=== PATIENT | female | born 1975 | race African-American/Black ===

== ENCOUNTER 2019-09-05 07:58 | Emergency (ER) | payer OTHER, MEDICAID ==
[~2019-09-05] VITALS: Ht 160 cm; Wt 68.0 kg
[~2019-09-05 07:58] MED LIST: IBUP600T27; PHENTAB
[2019-09-05] MEDS ORDERED: SODIUM CHLORIDE 0.9% 500 ML IV ONE (08:28)
[2019-09-05] MEDS ORDERED: SODIUM CHLORIDE 0.9% 1,000 ML IV ONE (08:28)
[2019-09-05 08:52] LABS: Urine Bacteria NONE SEEN /hpf (None Seen); Urine Blood 3+ /uL (Negative); Urine Specific Gravity 1.019 (1.001-1.035); Urine WBC 14 /hpf (0 - 5)
[2019-09-05 09:21] LABS: Eosinophils # (auto) 0.1 uL; Neutrophils # (auto) 2.7 uL; Platelet Count (auto) 408 10^3/uL (140-450)
[2019-09-05 09:24] LABS: Basophils # (auto) 0 uL; Eosinophils % (auto) 2.2 % (0.0-7.0); Hematocrit 27.9 % (36.0-46.0); Hemoglobin 8.7 g/dL (12.2-16.2); Lymphocytes # (auto) 1.1 uL; Lymphocytes % (auto) 25.5 % (10.0-50.0); Mean Corpuscular Hemoglobin 22.8 pg (28.0-32.0); Mean Corpuscular Hgb Conc. 31.1 g/dL (32.0-36.0); Mean Corpuscular Volume 73.5 fL (80.0-100.0); Monocytes # (auto) 0.5 uL; Monocytes % (auto) 12.1 % (0.0-12.0); Neutrophils % (auto) 59.2 % (37.0-80.0); Red Blood Cells 3.79 10^6/uL (4.0-5.20); White Blood Cell 4.5 10^3/uL (4.4-10.8)
[2019-09-05 09:28] LABS: Albumin 3.3 g/dL (3.4-5.0); BUN/Creatinine Ratio 18.6; Calcium 8.2 mg/dL (8.5-10.1); Potassium 4.8 mmol/L (3.5-5.1)
[2019-09-05 09:31] LABS: Bilirubin, Total 0.1 mg/dL (0.2-1.0); Total Protein 7.5 g/dL (6.4-8.2)
[2019-09-05 09:55] LABS: Red Cell Distribution Width 21.7 % (11.8-14.3)
[2019-09-05] MEDS ORDERED: KETOROLAC TROMETH 30 MG/ML 1ML VIAL IV ONE (10:00)
[2019-09-05 10:10] LABS: INR 0.95 (0.9-1.15); Partial Thromboplastin Time 25.8 sec (23.64-32.05)
[2019-09-05] MEDS ORDERED: cefTRIAXone 1GM/50ML D5W 50 ML IV ONE ×2 (13:00)
[2019-09-05 14:01] VITALS: BP 128/89
== END 2019-09-05 14:05 | disposition home or self-care (01) ==
LOC: ER 08:01
DX: D25.1 Intramural leiomyoma of uterus (principal); N39.0 Urinary tract infection, site not specified; N72 Inflammatory disease of cervix uteri; Z88.8 Allergy status to other drugs, medicaments and biological substances
CPT/HCPCS: 36415; 76830; 76856; 80053; 81001; 81025; 84702; 85025; 85610; 85730; 87491; 87591; 96365; 96375; 99284; J0696; J1885